=== PATIENT | female | born 1960 | race Caucasian/White ===

== ENCOUNTER 2017-09-10 07:08 | Day surgery (SDC) | payer OTHER ==
[2017-09-08 13:53] VITALS: BMI 26.2
--- NOTE | 2017-09-10 09:36 | MMO ---
MAMMOGRAPHIC GUIDED NEEDLE LOCALIZATION: HISTORY: Left breast DCIS. COMPARISON: Outside facility mammogram biopsy and ultrasound. FINDINGS: The patient is brought to the mammogram suite. All questions were answered. The patient's left breast is prepped and draped in normal sterile fashion. The left breast mass and clip were visualized. Two mL of buffered Lidocaine were instilled into the superficial soft tissues for anesthesia. Using a 5 cm Hull needle, the breast mass was accessed. The mass is speared with calcifications surroundi ng the needle. The center of the mass is 1 cm proximal to the tip. The curl is around the mass. IMPRESSION: Technically successful mammographic guided needle localization. POS: [facility]
[2017-09-10] MEDS ORDERED: CEFAZOLIN/Water 2 GM/20 ML SYRINGE ONE (10:31)
--- NOTE | 2017-09-10 11:54 | NM ---
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 COMPARISON: Multiple prior examinations. FINDINGS: A total of 0.4 millicuries of technetium 99m filtered sulfur colloid was instilled into the subcutane ous soft tissues, periareolar, at 12, 3, 9, and 6 o'clock. This was fractioned into 0.1 millicurie d oses. One-hour anterior and lateral upper body images demonstrate radiotracer activity within the left axil la. IMPRESSION: Left axillary radiotracer uptake. POS: [facility]
[2017-09-10] MEDS ORDERED: Midazolam HCl 2 mg/2 ml Vial ONE (11:56)
[2017-09-10] MEDS ORDERED: Fentanyl 100 MCG/2 ML VIAL ONE ×3 (11:56→13:51)
[2017-09-10] MEDS ORDERED: Lidocaine 2% Jelly 5 ML TUBE ONE (12:06)
[2017-09-10] MEDS ORDERED: Bupivacaine HCl 0.5%/Epinephrine 1:200,000/PF 30 ml Vial ONE (12:10)
[2017-09-10] MEDS ORDERED: Ketorolac Tromethamine 30 MG/ML VIAL ONE (13:52)
--- NOTE | 2017-09-10 14:17 | OP ---
DATE OF PROCEDURE: 09/10/2017 PREOPERATIVE DIAGNOSIS: Left breast ductal carcinoma in situ, high grade. POSTOPERATIVE DIAGNOSIS: Left breast ductal carcinoma in situ, high grade. PROCEDURES PERFORMED: 1. Left breast partial mastectomy after needle localization. 2. Left deep axillary node biopsy, sentinel node protocol. SURGEON: Genaro Graham M.D. ANESTHESIA: General. ESTIMATED BLOOD LOSS: Minimal. COMPLICATIONS: None. SPECIMEN: Left breast marked with two short superior, one long lateral, sent to path for final diagn osis. Left deep axillary node, sent to path for final diagnosis. INDICATIONS: The patient is a 57-year-old female who presents with a history of a mammographic abnor mality biopsied. Biopsy shows high grade DCIS with evidence of microinvasion. Given her high grade DCIS, she was counseled on need for sentinel node biopsy as well. Risks, benefits, alternatives, pro cedures were discussed. She gave consent. TECHNIQUE: The patient was taken to the operating room and placed supine on the table. After genera l anesthetic was obtained, bilateral neck, chest, abdomen and axilla were all prepped and draped in a sterile fashion. The patient had undergone preoperative lymphoscintigraphy and placement of a needl e localization wire in her left breast abnormality. An incision was made in the inferior hairline of the left axilla. Neoprobe used to find an area of increased uptake. A blue node was found (5 mL of methylene blue dye was given preop and massaged for 5 minutes). The sentinel node was removed with high counts on the back table. The background counts dropped to near 0. The wound was irrigated and closed using 3-0 Vicryl, 4-0 Monocryl and Dermabond. A transverse incision was made in the upper br east below the entrance of needle localization wire. Flaps are raised superior, medially, inferiorly , laterally around the end of the needle localization wire. Lump was marked with two short superior, one long lateral and sent to path for final diagnosis. Clip was found to be in the specimen on spec imen x-ray. The wound was irrigated. Local anesthetic was applied. The wound was closed using 3-0 Vicryl, 4-0 Monocryl, and Dermabond. The patient was en route to recovery in stable condition. All sponge counts, needle counts and lap counts are correct.
[2017-09-10] MEDS ORDERED: HYDROcodone/Acetaminophen 5/325 mg Tablet ONE (14:54)
[2017-09-10] MEDS ORDERED: ePHEDrine/0.9% NaCl/PF SYRINGE 50 mg/10 ml ONE (16:41)
[2017-09-10] MEDS ORDERED: Dexamethasone 20 MG/5 ML VIAL ONE (16:41)
[2017-09-10] MEDS ORDERED: Propofol 200 MG/20 ML VIAL ONE (16:41)
[2017-09-10] MEDS ORDERED: Ondansetron HCl/PF 4 MG/2 ML Vial ONE (16:41)
[2017-09-10] MEDS ORDERED: Lidocaine 1% PF 5 ML VIAL ONE (16:41)
== END 2017-09-10 15:20 | disposition home or self-care (01) ==
LOC: SDC 07:08
PROVIDERS: ATTEND Surgery
PROC: C71LYZZ Planar Nuclear Medicine Imaging of Upper Chest Lymphatics using Other Radionuclide (ICD-10-PCS; principal; 2017-09-10)
PROC: 0HBU0ZZ Excision of Left Breast, Open Approach (ICD-10-PCS; principal; 2017-09-10)
PROC: 07B60ZX Excision of Left Axillary Lymphatic, Open Approach, Diagnostic (ICD-10-PCS; principal; 2017-09-10)
DX: D05.12 Intraductal carcinoma in situ of left breast (principal); E78.00 Pure hypercholesterolemia, unspecified; J30.9 Allergic rhinitis, unspecified; D64.9 Anemia, unspecified; M10.9 Gout, unspecified; F41.9 Anxiety disorder, unspecified; Z79.899 Other long term (current) drug therapy; Z87.440 Personal history of urinary (tract) infections
CPT/HCPCS: 19281; 76098; 78195; 88307; 88341; 88342; 96374; A9541; J0670; J1100; J1885; J2001; J2250; J2405; J2704; J3010; Q9968